=== PATIENT | female | born 1960 | race Two or more races ===

== ENCOUNTER 2018-04-10 09:27 | Day surgery (SDC) | payer OTHER ==
[2018-04-09 11:26] VITALS: BMI 25.0
--- NOTE | 2018-04-10 08:43 | HP ---
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) Eye Medications: vigmox , comgigan bromfenac Previous Eye Surgery: s/p intravitreal injections of ozurdex ou, TMC ou, Avastin OS and s/p PRP - Medical History Illnesses: Cardiac Disorders (Chest pain, SOB, [place], Valve disease), Hypertension , Diabetes, Other (CKD) Current Medications: Ambulatory Orders Aspirin Coated [Ecotrin -] 81 mg PO DAILY 04/09/18 Atorvastatin Ca [Lipitor] 80 mg PO HS 04/09/18 Calcium Carbonate [Tums Ultra] 800 mg PO DAILY 04/09/18 Carvedilol [Coreg -] 25 mg PO BID 04/09/18 Clopidogrel Bisulfate [Plavix] 75 mg PO DAILY 04/09/18 Ferrous Sulfate [Feosol] 325 mg PO DAILY 04/09/18 Furosemide 40 mg PO DAILY 04/09/18 Glyburide 5 mg PO DAILY 04/09/18 Isosorbide Dinitrate [Isordil -] 10 mg PO BID 04/09/18 Sevelamer Carbonate [Renvela] 1,600 mg PO CM 04/09/18 Allergies/Adverse Reactions: Allergies Allergy/AdvReac Type Severity Reaction Status Date / Time No Known Drug Allergies Allergy Verified 04/09/18 11:41 Ocular Examination - Best Corrected Visual Acuity Distance: Right eye: CF Distance: Left eye: 20/60 - External/Slit Lamp Examination Abnormalities: normal - Intraocular Pressure Intraocular Pressure - Right eye: 16 Intraocular Pressure-Left eye: 16 - Lens Lens: 3-4+ NS brunescent, 4+ PSC - Vitreous/Retina Vitreous/Retina: C:D 0.35 macular scar, limited view of periphery - Special Examination M - Right eye: -1.50-1.50 x 062 M - Left eye: +1.75 -0.75 x 055 K - Right eye: 44.75/45.5 x 130 K - Left eye: 44.75/45.25 x 035 AL - Right eye: 22.49 AL - Left eye: 22.94 IOL bag: +22.0 DAUOOTO IOL sulcus: +21.0 MN60AC IOL AC: +18.0 MTA4uo - Impression Impression: Cataract Right Eye (mature) - Plan Plan: Phacoemulsification and cataract extraction - IOL Right eye Post-hospital care will be provided in office on: 04/11/18
--- NOTE | 2018-04-10 08:44 | HP ---
History & Physical Update - History History: No Change - Physical Physical: No Change - Assessment Assessment: No Change - Plan Plan: No Change (reviewed Dr. Homar Justice and P from 03/26/18 no changes)
[~2018-04-10 09:27] MED LIST: ACETAMINOPHEN 325 MG TABLET (FP) PO PRN; TOBRAMYCIN/DEXAMETHASONE OPHTH. OINTMENT 1 TUBE TP ONE
[2018-04-10] MEDS ORDERED: TROPICAMIDE 1% OPHTH SOLN 15 ML BOTTLE ONE (09:58)
[2018-04-10] MEDS ORDERED: KETOROLAC TROMETHAMINE 0.5% EYE DROP 1 DROP DROPS ONE (09:58)
[2018-04-10] MEDS ORDERED: CIPROFLOXACIN HCL 0.3% OPHTH 2.5ML BOTTLE ONE (09:58)
[2018-04-10] MEDS ORDERED: PHENYLEPHRINE 2.5% OPHTH SOLN 15 ML BOTTLE ONE (09:58)
[2018-04-10] MEDS: TROPICAMIDE 1% OPHTH SOLN 15 ML BOTTLE OP SCH ×2 (10:15→10:26)
[2018-04-10] MEDS: KETOROLAC TROMETHAMINE 0.5% EYE DROP 1 DROP DROPS OP SCH ×2 (10:15→10:26)
[2018-04-10] MEDS: PHENYLEPHRINE 2.5% OPHTH SOLN 15 ML BOTTLE OP SCH ×2 (10:15→10:26)
[2018-04-10] MEDS: CIPROFLOXACIN HCL 0.3% OPHTH 2.5ML BOTTLE OP SCH ×2 (10:15→10:27)
[2018-04-10] MEDS ORDERED: TRYPAN BLUE 0.5 ML DISP.SYRIN ONE (10:59)
[2018-04-10] MEDS ORDERED: LIDOCAINE HCL/PF 2% SDV 5ML VIAL ONE (11:00)
[2018-04-10] MEDS ORDERED: BUPIVACAINE HCL/PF 0.75% 10 ML VIAL ONE (11:00)
[2018-04-10] MEDS ORDERED: BUPIVACAINE HCL/PF 0.75% 10 ML VIAL NR ONE (11:12)
[2018-04-10] MEDS ORDERED: LIDOCAINE HCL/PF 2% SDV 5ML VIAL INF ONE (11:12)
[2018-04-10] MEDS ORDERED: POVIDONE-IODINE 5% OPHTHALMIC PREP 30 ML SOLUTION OD ONE (11:13)
[2018-04-10] MEDS ORDERED: TETRACAINE 0.5% OPHTH SOLN 2 ML BOTTLE TP ONE (11:15)
[2018-04-10] MEDS ORDERED: LIDOCAINE HCL 1% PRESERVATIVE FREE - 30ML VIAL IO ONE (11:23)
[2018-04-10] MEDS ORDERED: BSS (NA/CA/MG/K) BALANCED SALT SOLUTION OPHTH SOLN 15 ML BOTTLE OD ONE (11:23)
[2018-04-10] MEDS ORDERED: CHONDROITIN SU A/HYALUR SOD 1 KIT IO ONE (11:23)
[2018-04-10] MEDS ORDERED: TRYPAN BLUE 0.5 ML DISP.SYRIN TP ONE (11:23)
[2018-04-10] MEDS ORDERED: EPINEPHrine/PF 1 MG/1 ML (1:1,000) AMPULE SQ ONE (11:30)
[2018-04-10] MEDS ORDERED: TOBRAMYCIN/DEXAMETHASONE OPHTH. OINTMENT 1 TUBE TP ONE (11:45)
--- NOTE | 2018-04-10 11:50 | OP ---
Ophthalmology Operative Note Pre-Operative Diagnosis: Mature cataract Affected Eye: Right Operation: Phacoemulsification and cataract extraction with PCIOL (using trypan blue) Findings: mature cataract right eye Post-Operative Diagnosis: Same as Pre-op Nut Orchardist: None Anesthesiologist: Brendon Smith Anesthesia: Local (peribulbar), Peribulbar Specimens Removed: none Estimated blood loss: <1 cc Drains & Tubes with Location: none Operative Report Dictated: Yes
[2018-04-10 12:16] VITALS: TEMP 97.7
--- NOTE | 2018-04-10 12:22 | OP ---
DATE OF OPERATION: DATE OF DICTATION: 04/10/2018 PREOPERATIVE DIAGNOSIS: Mature cataract, right eye. POSTOPERATIVE DIAGNOSIS: Mature cataract, right eye. PROCEDURE: Phacoemulsification and cataract extraction with insertion of posterior chamber intraocular lens, right eye, using Trypan blue. SURGEON: Olya Boyle MD PER DIEM NURSE: None. ANESTHESIA: Peribulbar block. ANESTHESIOLOGIST: Brendon Smith CRNA OPERATIVE PROCEDURE: Following satisfactory intravenous sedation, the patient received local anesthesia using a 50:50 mixture of lidocaine 2% and Marcaine 0.75%. A van Lint lid block was delivered to the right eye using 3.5 mL of the mixture and a peribulbar injection using 3.5 mL of the mixture. The patient was then prepped and draped in the usual sterile fashion so as to expose only the right eye. Ophthalmic Betadine was instilled into the inferior fornix and lashes were taped out of the surgical field. An eyelid speculum was placed into the right eye. A paracentesis was made in superior temporal clear cornea at the limbus. An air bubble was injected into the anterior chamber, and Trypan blue was dripped on the anterior capsular edge. Viscoelastic material was instilled into the anterior chamber via the paracentesis. A 2.4 mm keratome was then used to create the main incision in temporal clear cornea at the limbus. A continuous curvilinear capsulorhexis was performed using a cystotome and Utrata forceps. Hydrodissection of the lens cortex was performed using BSS on a cannula until the nucleus was noted to be freely rotating. The phacoemulsification tip was then inserted via the main wound and used to scope 2 perpendicular grooves into the lens nucleus. The nucleus was cracked into 4 quadrants. Each quadrant was lifted out of the capsule into the iris plane and individually phacoemulsified. The remaining cortical material was then aspirated using the irrigation and aspiration port. The capsular bag was inflated using ProVisc and a preloaded AcrySof lens model AU00T0 power +22.0 diopters was injected into the capsular bag and centered using a Sinskey hook. The residual viscoelastic material was removed from the anterior chamber using irrigation and aspiration. The wound edges were hydrated using BSS. The wound was tested for leakage and was found to be watertight. Tobradex ointment was placed in the eye, the speculum was removed from the eye, and the eyelid was closed. A sterile dressing and shield were placed over the eye. The patient was transferred to the recovery room in stable condition, told to follow up in 1 day. OLYA BOYLE M.D. [id number]
[2018-04-10 13:41] VITALS: BP 165/94; PULSE 67
== END 2018-04-10 12:45 | disposition home or self-care (01) ==
LOC: JASU-SURG 09:27
PROVIDERS: ATTEND Ophthalmology
PROC: 08RJ3JZ Replacement of Right Lens with Synthetic Substitute, Percutaneous Approach (ICD-10-PCS; principal; 2018-04-10 10:30)
DX: H25.21 Age-related cataract, morgagnian type, right eye (principal)
CPT/HCPCS: 82962

== ENCOUNTER 2020-06-09 04:41 | Day surgery (SDC) | payer OTHER ==
[2020-06-08 17:59] VITALS: BMI 26.2
[~2020-06-09 04:41] MED LIST changes: -ACETAMINOPHEN 325 MG TABLET (FP) PO PRN; +BSS (NA/CA/MG/K) BALANCED SALT SOLUTION OPHTH SOLN 15 ML BOTTLE OS ONE; +CHONDROITIN SU A/HYALUR SOD 1 KIT IO ONE; +EPINEPHrine/PF 1 MG/1 ML (1:1,000) AMPULE SQ ONE; +LIDOCAINE HCL 1% PRESERVATIVE FREE - 30ML VIAL IO ONE; +POVIDONE-IODINE 5% OPHTHALMIC PREP 30 ML SOLUTION OS ONE; +TETRACAINE 0.5% OPHTH SOLN 2 ML BOTTLE OS ONE; +TOBRAMYCIN/DEXAMETHASONE OPHTH. OINTMENT 1 TUBE OS ONE; -TOBRAMYCIN/DEXAMETHASONE OPHTH. OINTMENT 1 TUBE TP ONE
[2020-06-09] MEDS ORDERED: TETRACAINE 0.5% OPHTH SOLN 2 ML BOTTLE ONE (06:39)
[2020-06-09] MEDS ORDERED: LIDOCAINE HCL/PF 1% SDV 5ML VIAL ONE (06:39)
[2020-06-09] MEDS ORDERED: POVIDONE-IODINE 5% OPHTHALMIC PREP 30 ML SOLUTION ONE (06:39)
[2020-06-09] MEDS ORDERED: TOBRAMYCIN/DEXAMETHASONE OPHTH. OINTMENT 1 TUBE ONE (06:42)
[2020-06-09] MEDS ORDERED: CHONDROITIN SU A/HYALUR SOD 1 KIT ONE (06:42)
[2020-06-09] MEDS ORDERED: ACETAMINOPHEN 325 MG TABLET (FP) PO PRN (07:23)
[2020-06-09] MEDS ORDERED: PHENYLEPHRINE 2.5% OPHTH SOLN 15 ML BOTTLE OP SCH (07:30)
[2020-06-09] MEDS ORDERED: KETOROLAC TROMETHAMINE 0.5% EYE DROP 1 DROP DROPS OP SCH (07:30)
[2020-06-09] MEDS ORDERED: TROPICAMIDE 1% OPHTH SOLN 15 ML BOTTLE OP SCH (07:30)
[2020-06-09] MEDS ORDERED: CIPROFLOXACIN HCL 0.3% OPHTH 2.5ML BOTTLE OP SCH (07:30)
[2020-06-09] MEDS ORDERED: TROPICAMIDE 1% OPHTH SOLN 15 ML BOTTLE ONE (09:22)
[2020-06-09] MEDS ORDERED: CIPROFLOXACIN HCL 0.3% OPHTH 2.5ML BOTTLE ONE (09:22)
[2020-06-09] MEDS ORDERED: DICLOFENAC SODIUM 0.1% OPHTHALMIC 2.5ML BOTTLE ONE (09:22)
[2020-06-09] MEDS ORDERED: TROPICAMIDE 1% OPHTH SOLN 15 ML BOTTLE OS ONE ×3 (09:35→10:05)
[2020-06-09] MEDS ORDERED: CIPROFLOXACIN HCL 0.3% OPHTH 2.5ML BOTTLE OS ONE ×2 (09:35→09:50)
[2020-06-09] MEDS ORDERED: PHENYLEPHRINE 2.5% OPHTH SOLN 15 ML BOTTLE OS ONE ×3 (09:35→10:05)
[2020-06-09] MEDS ORDERED: KETOROLAC TROMETHAMINE 0.5% EYE DROP 1 DROP DROPS OS ONE ×3 (09:35→10:05)
[2020-06-09] MEDS ORDERED: MIDAZOLAM HCL 2 MG/2 ML SINGLE DOSE VIAL ONE (09:35)
--- NOTE | 2020-06-09 09:50 | HP ---
- Patient Scheduled date of Surgery: 06/09/20 Scheduled Surgical Procedure: Phacoemulsification and cataract extraction with PCIOL Affected Eye: Left Chief Complaint (Indication for surgery): Decreased vision affecting ADLs - Ocular History Other Eye History: Other (PDR, DME, glaucoma , macular scar od) Eye Medications: vigamox 0/3, bromfenac 0/1, latanoprost 1/1, combigan 2/2 Previous Eye Surgery: s/p ce/pciol OD, s/p eyelea, ozurdex, s/p prp ou s/p triamcinolone OD - Medical History Illnesses: Cardiac Disorders (Chest pain, SOB, [place], Valve disease) (s/p stent,), Hypertension, Hypercholesterolemia, Diabetes, Other (hypothyroid) Current Medications: Ambulatory Orders Aspirin Coated [Ecotrin -] 81 mg PO DAILY 04/09/18 Atorvastatin Ca [Lipitor] 80 mg PO HS 04/09/18 Calcium Carbonate [Tums Ultra] 800 mg PO DAILY 04/09/18 Carvedilol [Coreg -] 25 mg PO BID 04/09/18 Furosemide 40 mg PO DAILY 04/09/18 Glyburide 5 mg PO DAILY 04/09/18 Isosorbide Dinitrate [Isordil -] 60 mg PO DAILY 04/09/18 Sevelamer Carbonate [Renvela] 1,600 mg PO CM 04/09/18 Calcitriol [Rocaltrol -] 0.25 mcg PO ASDIR 06/08/20 Folic Acid 1 mg PO DAILY 06/08/20 Apremilast [Otezla] 30 mg PO DAILY 06/09/20 Allergies/Adverse Reactions: Allergies Allergy/AdvReac Type Severity Reaction Status Date / Time chlorhexidine Allergy Verified 06/08/20 13:23 ondansetron [From Zofran] Allergy Verified 06/08/20 13:22 vancomycin Allergy Verified 06/08/20 13:23 Ocular Examination - Best Corrected Visual Acuity Distance: Right eye: 20/80 Distance: Left eye: 20/40 - External/Slit Lamp Examination Abnormalities: none - Intraocular Pressure Intraocular Pressure (mm/Hg) - Right eye: 17 Intraocular Pressure (mm/Hg)-Left eye: 17 - Lens Lens: 2+ NS vacuoles - Vitreous/Retina Vitreous/Retina: C:D 0.15 pigmentary change, dot blot heme , p laser scars + PVD - Special Examination M - Right eye: plano-1.00 x 045 M - Left eye: +1.75-0.50 x055 K - Right eye: 44.50/45.50 x 133 K - Left eye: 44.50/45 x055 AL - Left eye: 22.77 IOL bag: + 22.0 AUOOTO IOL sulcus: +21.0 MN60 AC IOL AC: +19.0 MTA 4UO - Impression Impression: Cataract Left Eye - Plan Plan: Phacoemulsification and cataract extraction - IOL Left eye Post-hospital care will be provided in office on: 06/10/20
--- NOTE | 2020-06-09 09:53 | HP ---
History & Physical Update - History History: Change (see notes) (H and P reivewed from Dr. Cr from 06/01/20 CKD on peritoneal dialysis, CHF, anemia) - Physical Physical: No Change - Assessment Assessment: No Change - Plan Plan: No Change (H and P reviewed from Dr Alexander -)
[2020-06-09] MEDS ORDERED: TETRACAINE 0.5% OPHTH SOLN 2 ML BOTTLE OS ONE (10:02)
[2020-06-09] MEDS ORDERED: POVIDONE-IODINE 5% OPHTHALMIC PREP 30 ML SOLUTION OS ONE (10:03)
[2020-06-09] MEDS ORDERED: CIPROFLOXACIN 0.3% EYE DROPS 5 ML BOTTLE OS ONE (10:05)
[2020-06-09] MEDS ORDERED: BSS (NA/CA/MG/K) BALANCED SALT SOLUTION OPHTH SOLN 15 ML BOTTLE OS ONE (10:10)
[2020-06-09] MEDS ORDERED: LIDOCAINE HCL 1% PRESERVATIVE FREE - 30ML VIAL IO ONE (10:10)
[2020-06-09] MEDS ORDERED: CHONDROITIN SU A/HYALUR SOD 1 KIT IO ONE (10:10)
[2020-06-09] MEDS ORDERED: EPINEPHrine/PF 1 MG/1 ML (1:1,000) AMPULE SQ ONE (10:15)
[2020-06-09] MEDS ORDERED: TOBRAMYCIN/DEXAMETHASONE OPHTH. OINTMENT 1 TUBE OS ONE (10:26)
--- NOTE | 2020-06-09 10:32 | OP ---
Ophthalmology Operative Note Pre-Operative Diagnosis: Cataract Affected Eye: Left Operation: Phacoemulsification and cataract extraction with PCIOL Findings: Nuclear sclerotic cataract left eye Post-Operative Diagnosis: Same as Pre-op Participant Administrator: None Anesthesiologist: Jp Calvin Anesthesia: Topical Specimens Removed: none Estimated blood loss: < 1 cc Drains & Tubes with Location: none Operative Report Dictated: Yes
[2020-06-09 11:56] VITALS: BP 112/64; PULSE 74; TEMP 97.8
--- NOTE | 2020-06-10 12:55 | OP ---
DATE OF OPERATION: 06/09/2020 DATE OF DICTATION: 06/09/2020 PREOPERATIVE DIAGNOSIS: Nuclear sclerotic cataract, left eye. POSTOPERATIVE DIAGNOSIS: Nuclear sclerotic cataract, left eye. PROCEDURE: Phacoemulsification and cataract extraction with insertion of posterior chamber intraocular lens, left eye. SURGEON: Olya Boyle MD TICKET TAKER FERRYBOAT: None. ANESTHESIA: Topical. ANESTHESIOLOGIST: Cleveland Calvin MD OPERATIVE PROCEDURE: The patient received Tetracaine eye drops and was gently sedated and prepped and draped in the usual sterile fashion so as to expose only the left eye. Ophthalmic Betadine was instilled into the inferior fornix and lashes were taped out of the surgical field. An eyelid speculum was placed into the left eye. Paracentesis was made in inferior temporal clear cornea at the limbus. Then 0.5 mL of nonpreserved lidocaine 1% was injected into the anterior chamber and then 1 mL of dilute epinephrine 1:10,000 was injected into the anterior chamber to improve pupillary dilation. Viscoelastic material was instilled into the anterior chamber via the paracentesis. A 2.4-mm keratome blade was then used to create the main incision in temporal clear cornea at the limbus. A continuous curvilinear capsulorhexis was performed using a cystotome and Utrata forceps. Hydrodissection of the lens cortex was performed using BSS on a cannula until the nucleus was noted to be freely rotating. The phacoemulsification tip was then inserted via the main wound and used to scope 2 perpendicular grooves into the lens nucleus. The nucleus was cracked into 4 quadrants. Each quadrant was lifted out of the capsule into the iris plane and individually phacoemulsified. The remaining cortical material was then aspirated using the irrigation/aspiration port. The capsular bag was inflated using ProVisc and a preloaded AcrySof lens model [id number] power +22.0 diopters was injected into the capsular bag. It was centered using a Sinskey hook. The residual viscoelastic material was removed from the anterior chamber using irrigation and aspiration. The wound edges were hydrated using BSS. The wound was tested for leakage and was found to be watertight. Tobradex ointment was placed in the eye, and the speculum was removed from the eye, and the eyelid was closed. A sterile dressing and shield were placed over the eye. The patient was transferred to the recovery room in stable condition, told to follow up in 1 day. OLYA BOYLE M.D. [id number]
== END 2020-06-09 11:30 | disposition home or self-care (01) ==
LOC: JASU-SURG 04:41
PROVIDERS: ATTEND Ophthalmology
PROC: 08RK3JZ Replacement of Left Lens with Synthetic Substitute, Percutaneous Approach (ICD-10-PCS; principal; 2020-06-09 10:30)
DX: H25.12 Age-related nuclear cataract, left eye (principal); I12.9 Hypertensive chronic kidney disease with stage 1 through stage 4 chronic kidney disease, or unspecified chronic kidney disease; E11.22 Type 2 diabetes mellitus with diabetic chronic kidney disease; N18.9 Chronic kidney disease, unspecified; N17.9 Acute kidney failure, unspecified
CPT/HCPCS: 82962